=== PATIENT | male | born 1940 | race Caucasian/White ===

== ENCOUNTER → 2016-05-29 | Outpatient (CLI) | payer OTHER, MEDICARE ==
--- NOTE | 2016-05-29 11:49 | DX ---
Right Great Toe, 3 Views History: Increasing pain and swelling after injury 2 weeks ago. Findings: Degenerative change is seen at the first metatarsophalangeal joint with joint narrowing, larose barticular sclerosis, and periarticular spurring. There appears to be a nondisplaced fracture through a medial osteophyte at the base of the first proximal phalanx. No other evidence for acute fracture. Mild hallux valgus and bunion deformity. Impression: Probable nondisplaced fracture through a medial osteophyte at the base of the first proxi mal phalanx. Moderate degenerative change first metatarsophalangeal joint. Hallux valgus and bunion d eformity.
== END ==
LOC: GIMAGING 11:10
PROVIDERS: ATTEND Nurse Practitioner
DX: M19.071 Primary osteoarthritis, right ankle and foot (principal); M20.11 Hallux valgus (acquired), right foot; M21.611 Bunion of right foot; W20.8XXA Other cause of strike by thrown, projected or falling object, initial encounter; S99.921A Unspecified injury of right foot, initial encounter; M79.89 Other specified soft tissue disorders
CPT/HCPCS: 73660-PO

== ENCOUNTER → 2016-09-12 | Outpatient (CLI) | payer OTHER, MEDICARE | LOC: BHCLAF 14:15 | PROVIDERS: ATTEND Internal Medicine Cardiovascular Disease | DX: I25.10 Atherosclerotic heart disease of native coronary artery without angina pectoris (principal); I10 Essential (primary) hypertension; E78.5 Hyperlipidemia, unspecified | CPT/HCPCS: 93005-PO ==

== ENCOUNTER → 2016-09-23 | Outpatient (CLI) | payer OTHER, MEDICARE | LOC: BHFA 10:45 | PROVIDERS: ATTEND Internal Medicine Cardiovascular Disease | DX: R00.2 Palpitations (principal); R06.00 Dyspnea, unspecified; I10 Essential (primary) hypertension ==

== ENCOUNTER → 2016-10-30 | Outpatient (CLI) | payer OTHER, MEDICARE | LOC: BHFA 13:00 | PROVIDERS: ATTEND Internal Medicine Cardiovascular Disease | DX: R07.9 Chest pain, unspecified (principal) | CPT/HCPCS: 78452; 93017; A9500 ==

== ENCOUNTER → 2016-11-07 | Outpatient (CLI) | payer OTHER, MEDICARE | LOC: BHFA 13:00 | PROVIDERS: ATTEND Internal Medicine Cardiovascular Disease | DX: I47.1 Supraventricular tachycardia (principal) ==

== ENCOUNTER 2016-12-29 10:43 | Observation (INO) | payer OTHER, MEDICARE ==
[2016-12-29] MEDS ORDERED: ASPIRIN 81 MG CHEWABLE TAB PO ONE (11:07)
--- NOTE | 2016-12-29 11:07 | EDPHY ---
H & P Stated Complaint: Midsternal CP since 9am;feels jittery;pain like previous IA - Personal History Current Tetanus Diphtheria and Acellular Pertussis (TDAP): Yes - Medical/Surgical History Hx Cardiac Disease: Yes Other PMH: IA, High Cholest.Gutlate psoriasis - Social History Smoking Status: Never smoked Time Seen by Provider: 12/29/16 10:56 HPI/ROS: CHIEF COMPLAINT: midsternal chest pain since 9:00 a.m. today HISTORY OF PRESENT ILLNESS: 76-year-old male prior history of IA 2006 this, SVT , arrives via private vehicle complaining of midsternal chest pain started 9:00 a.m. today while drinking coffee. Not involving exertional activities. He has associated sensation of sore throat. At time my interview and evaluation is asymptomatic no chest pain no sore throat. No radiation of pain. No dyspnea. No syncope no near syncope. He last worked out yesterday completing 45 minutes of cardiac activity is did not need to cease activity secondary chest pain with dyspnea. [facility] [place] REVIEW OF SYSTEMS: A ten point review of systems was performed and is negative with the exception of the items mentioned in the HPI PAST MEDICAL & SURGICAL HISTORY: IA. SVT. SOCIAL HISTORY: Nonsmoker PHYSICAL EXAM (Prior to examination, patient consented to physical exam, hands were washed and my usual and customary physical exam procedures followed) 1) GENERAL: Well-developed, well-nourished, alert and oriented. Appears to be in no acute distress. 2) HEAD: Normocephalic, atraumatic 3) HEENT: Pupils equal, round, reactive to light bilaterally. Sclera anicteric. Nasopharynx, oropharynx, clear, no lesions. 4) NECK: Full range of motion, no bruit 5) LUNGS: Clear auscultation bilaterally, no wheezes, no rhonchi, no retractions. 6) HEART: Regular rate and rhythm, no murmur, no heave, no gallop. 7) ABDOMEN: No guarding, no rebound, no focal tenderness, negative McBurney's, negative Arreguin's, negative Rovsing's, negative peritoneal sign, 8) MUSCULOSKELETAL: Moving all extremities, no focal areas of tenderness, no obvious trauma. No peripheral edema or discoloration. Negative Homans no palpable cord 9) BACK: No CVA tenderness, no midline vertebral tenderness, no fluctuance, no step-off, no obvious trauma, no visual or palpable abnormality. 10) SKIN: No rash, no petechiae. 11) Psychiatric: Patient is oriented X 3, there is no agitation. DIFFERENTIAL DIAGNOSIS: in no particular order, including but not limited to myocardial ischemia, pulmonary embolus, chest wall pain, pleural inflammation and pulmonary infectious causes. (Esther Bryant Karina) Constitutional: Initial Vital Signs Temperature (C) 36.7 C 12/29/16 10:46 Heart Rate 64 12/29/16 10:46 Respiratory Rate 18 12/29/16 10:46 Blood Pressure 147/69 H 12/29/16 10:46 O2 Sat (%) 96 12/29/16 10:46 O2 Delivery Mode Room Air Allergies/Adverse Reactions: No Known Allergies Allergy (Verified 12/29/16 10:45) Home Medications: Medication Instructions Recorded Atorvastatin Calcium [Lipitor 40 40 mg PO HS 12/29/12 mg (RX)] Aspirin [Aspirin 81mg (*)] 81 mg PO DAILY 12/29/16 Diltiazem HCl [Cartia XT 240mg] 240 mg PO DAILY 12/29/16 Escitalopram Oxalate [Lexapro] 10 mg PO DAILY 12/29/16 Herbals/Supplements -Info Only 1 ea PO DAILY 12/29/16 Losartan Potassium [Cozaar 50 mg 50 mg PO HS 12/29/16 (*)] Medical Decision Making - Diagnostics Imaging Results: Imaging Impressions Chest X-Ray 12/29/16 11:07 Impression: 1. No acute process. 2. Minimal air trapping similar to 2015. Chest/Thorax CTA 12/29/16 11:56 Impression: 1. No evidence of thrombopulmonary embolic disease. 2. Normal caliber mildly atherosclerotic aorta. No dissection. 3. Clear lungs. Scattered probably benign noncalcified pulmonary nodules in the right lower lobe. Recommend follow-up low-dose noncontrast chest CT in 12 months to assure benignity. Findings discussed with Emergency Department physician digital sales assistant, Leonides Bryant PA-C on December 29, 2016 at 1247 hours. ED Course/Re-evaluation: Case discussed with Dr Jefferson in the ER. Due to patient's history of IA, timing of symptoms, plan will be admission to hospitalist with cardiology consultation. 12:45 p.m.: Phone consultation with hospitalist Elke admit to Dr. Hubbard. I consulted with Dr. Berry So cardiology who will consult Cardiology (Etsher Bryant) Other Provider: [id number]: Assessed patient in conjunction with MODESTO Bryant. His symptoms today are the same as his prior IA. I've reviewed his EKG and recommended admission and cardiology consult for this. (Chetan Jefferson) - Data Points Laboratory Results: Laboratory Results 12/29/16 10:54 12/29/16 10:54 12/29/16 12/29/16 12/29/16 10:54 10:54 10:54 WBC RBC Hgb Hct MCV MCH MCHC RDW Plt Count MPV Neut % (Auto) Lymph % (Auto) Mcnairy % (Auto) Eos % (Auto) Baso % (Auto) Nucleat RBC Rel Count Absolute Neuts (auto) Absolute Lymphs (auto) Absolute Monos (auto) Absolute Eos (auto) Absolute Basos (auto) Absolute Nucleated RBC Immature Gran % Immature Gran # PT 14.3 SEC SEC (12.0-15.0) INR 1.12 (0.83-1.16) APTT 28.2 SEC SEC (23.0-38.0) D-Dimer 0.76 ug/mLFEU H ug/mLFEU (0.00-0.50) Sodium 138 mEq/L mEq/L (134-144) Potassium 4.7 mEq/L mEq/L (3.5-5.2) Chloride 100 mEq/L mEq/L (97-110) Carbon Dioxide 23 mEq/l mEq/l (22-31) Anion Gap 15 mEq/L mEq/L (8-16) BUN 17 mg/dL mg/dL (7-23) Creatinine 1.3 mg/dL mg/dL (0.7-1.3) Estimated GFR 54 Glucose 73 mg/dL mg/dL (70-100) Calcium 9.9 mg/dL mg/dL (8.5-10.4) Magnesium 2.1 mg/dL mg/dL (1.6-2.3) Troponin I < 0.012 ng/mL ng/mL (0.000-0.034) 08/28/17 10:54 WBC 5.59 10^3/uL 10^3/uL (3.80-9.50) RBC 4.89 10^6/uL 10^6/uL (4.40-6.38) Hgb 15.8 g/dL g/dL (13.7-17.5) Hct 45.6 % % (40.0-51.0) MCV 93.3 fL fL (81.5-99.8) MCH 32.3 pg pg (27.9-34.1) MCHC 34.6 g/dL g/dL (32.4-36.7) RDW 13.1 % % (11.5-15.2) Plt Count 159 10^3/uL 10^3/uL (150-400) MPV 9.7 fL fL (8.7-11.7) Neut % (Auto) 69.8 % % (39.3-74.2) Lymph % (Auto) 18.6 % % (15.0-45.0) Mcnairy % (Auto) 8.4 % % (4.5-13.0) Eos % (Auto) 1.4 % % (0.6-7.6) Baso % (Auto) 1.6 % % (0.3-1.7) Nucleat RBC Rel Count 0.0 % % (0.0-0.2) Absolute Neuts (auto) 3.90 10^3/uL 10^3/uL (1.70-6.50) Absolute Lymphs (auto) 1.04 10^3/uL 10^3/uL (1.00-3.00) Absolute Monos (auto) 0.47 10^3/uL 10^3/uL (0.30-0.80) Absolute Eos (auto) 0.08 10^3/uL 10^3/uL (0.03-0.40) Absolute Basos (auto) 0.09 10^3/uL 10^3/uL (0.02-0.10) Absolute Nucleated RBC 0.00 10^3/uL 10^3/uL (0-0.01) Immature Gran % 0.2 % % (0.0-1.1) Immature Gran # 0.01 10^3/uL 10^3/uL (0.00-0.10) PT INR APTT D-Dimer Sodium Potassium Chloride Carbon Dioxide Anion Gap BUN Creatinine Estimated GFR Glucose Calcium Magnesium Troponin I Medications Given: Discontinued Medications Aspirin (Aspirin) 324 mg PO EDNOW ONE Stop: 12/29/16 11:08 Last Admin: 12/29/16 11:15 Dose: 243 mg Departure - Departure Disposition: [facility] Inpatient Acute Clinical Impression: Chest pain Qualifiers: Chest pain type: other chest pain Qualified Code(s): R07.89 - Other chest pain Atrial fibrillation Qualifiers: Atrial fibrillation type: paroxysmal Qualified Code(s): I48.0 - Paroxysmal atrial fibrillation Condition: Fair
--- NOTE | 2016-12-29 11:08 | CPEKG ---
Heart Rate: 78 RR Interval: 769 P-R Interval: 180 QRSD Interval: 98 QT Interval: 396 QTC Interval: 452 P Opp: 70 QRS Opp: 80 T Wave Opp: 53 EKG Severity - ABNORMAL ECG - EKG Impression: SINUS RHYTHM EKG Impression: SUPRAVENTRICULAR BIGEMINY Electronically Signed By: Chetan Jefferson 29-Dec-2016 13:20:33
[2016-12-29 11:20] LABS: % IMMATURE GRANULYOCYTES 0.2 % (0.0-1.1); ABSOLUTE IMMATURE GRANULOCYTES 0.01 10^3/uL (0.00-0.10); ADD DIFF? NO; ADD MORPH? NO; ADD SCAN? NO; ATYPICAL LYMPHOCYTE FLAG 10 (0-99); FRAGMENT RBC FLAG 0 (0-99); HEMATOCRIT 45.6 % (40.0-51.0); HEMOGLOBIN 15.8 g/dL (13.7-17.5); LEFT SHIFT FLG 0 (0-99); LIPEMIA HEMOLYSIS FLAG 90 (0-99); MEAN CELL HEMOGLOBIN 32.3 pg (27.9-34.1); MEAN CELL HEMOGLOBIN CONCENTR. 34.6 g/dL (32.4-36.7); MEAN CELL VOLUME 93.3 fL (81.5-99.8); MEAN PLATELET VOLUME 9.7 fL (8.7-11.7); PLATELET CLUMPS FLAG 0 (0-99); PLATELET COUNT 159 10^3/uL (150-400); RED BLOOD CELL COUNT 4.89 10^6/uL (4.40-6.38); RED CELL DISTRIBUTION WIDTH 13.1 % (11.5-15.2)
[2016-12-29 11:30] LABS: INR 1.12 (0.83-1.16); PROTIME(PATIENT) 14.3 SEC (12.0-15.0)
[2016-12-29 11:31] LABS: APTT 28.2 SEC (23.0-38.0)
[2016-12-29 11:42] LABS: ANION GAP 15 mEq/L (8-16); CALCIUM 9.9 mg/dL (8.5-10.4); CARBON DIOXIDE 23 mEq/l (22-31); CHLORIDE 100 mEq/L (97-110); CREATININE 1.3 mg/dL (0.7-1.3); GLOMERULAR FILTRATION RATE 54; GLUCOSE 73 mg/dL (70-100); POTASSIUM 4.7 mEq/L (3.5-5.2); SODIUM 138 mEq/L (134-144)
[2016-12-29 11:54] LABS: TROPONIN I < 0.012 ng/mL (0.000-0.034)
[2016-12-29] MEDS ORDERED: IOPAMIDOL (ISOVUE 370) 100 ML BTL IV ONE (12:12)
[2016-12-29] MEDS ORDERED: ACETAMINOPHEN 325 MG TAB PO PRN (13:30)
[2016-12-29] MEDS ORDERED: ONDANSETRON DISINTEGRATING 4 MG TAB PO PRN (13:30)
[2016-12-29] MEDS ORDERED: ONDANSETRON 4 MG/2 ML VIAL IVP PRN (13:30)
--- NOTE | 2016-12-29 15:29 | GHP ---
[f rep st] HISTORY AND PHYSICAL DATE OF ADMISSION: 12/29/2016 CHIEF COMPLAINT: Chest tightness. HISTORY OF PRESENT ILLNESS: A 76-year-old male with history of coronary artery disease, SVT, followed by [facility], presenting with chest and neck tightness this morning. Approximately 9 o'clock while sitting, had chest pressure across the chest, up to his neck, with an associated tired feeling. There was no nausea, vomiting, or numbness. He said he was watching his rhythm on his pulse oximetry machine at home and said it was not regular. He was concerned of atrial fibrillation. This episode lasted for an hour and a half. Currently asymptomatic. Exercises 2-3 times a week, an hour at a time on the exercise machines, without chest pressure or shortness of breath. No lower extremity edema. No PND. No pillow orthopnea. Had a cath 08/2012 showing mild coronary artery disease without flow limitation. LAD had mild diffuse disease in the proximal and mid segments, approximately 25% to 30%. Echocardiogram 09/27 showed normal LVF and no valvular abnormalities. Underwent MPI stress test October 2016 showing stress EKG equivocal for ischemia with a Day treadmill score of 4, but normal myocardial perfusion imaging. REVIEW OF SYSTEMS: I completed a 10-point review of systems, negative except as noted in HPI. PAST MEDICAL HISTORY: 1. Coronary artery disease. 2. Hyperlipidemia. 3. Hypertension. 4. SVT. 5. Anxiety. 6. Coronary artery disease. 7. Depression. SURGICAL HISTORY: Coronary cath, dental work. FAMILY HISTORY: Mother with congestive heart failure. ALLERGIES: None. MEDICATIONS: See medication reconciliation. SOCIAL HISTORY: Lives in [place] with his , over 50 years. Had smoked half a pack of cigarettes for approximately 6 years. No illicits. Occasional alcohol. PHYSICAL EXAMINATION: VITAL SIGNS: Temperature 36.6, blood pressure 147/69, heart rate 70s, respirations 20, 92% on room air. GENERAL: Well-appearing male , sitting up in bed, in no acute distress. HEENT: PERRLA. EOMI. Oropharynx clear. CV: Regular rate. Occasional extra beat. No murmurs, gallops, rubs. No lower extremity edema. LUNGS: Clear to auscultation bilaterally. No crackles or wheezing. GI: Soft, nontender, nondistended. Positive bowel sounds. : No suprapubic tenderness. MUSCULOSKELETAL: 5/5 upper and lower extremity strength. NEURO: 2 through 12 intact. PSYCH: Alert and oriented x3. LABORATORY DATA: WBCs 5, hemoglobin 15, hematocrit 45, platelets 159. D-dimer is 0.76. INR 1.1. PT 14. Sodium 138, potassium 4.7, chloride 100, carbon dioxide 23, creatinine 1.3 at baseline. Troponin less than 0.012. EKG was personally reviewed by me, normal sinus rhythm, bigeminy. CTA chest, no pulmonary embolism. Clear lungs. Noncalcified pulmonary nodules in the right lower lobe. ASSESSMENT AND PLAN: 1. Chest pressure: Differential includes gastroesophageal reflux disease, musculoskeletal, acute coronary syndrome, versus pulmonary embolism. CTA was negative for a clot. Symptoms may be secondary to premature ventricular contractions. Initial EKG and troponin are nonischemic. We will repeat both these and monitor on telemetry. He had a recent stress test with an equivocal EKG portion and normal imaging. 2. History of supraventricular tachycardia: Followed by Dr. Panda. We will continue diltiazem. 3. Coronary artery disease: Continue statin, aspirin, and RITCHIE inhibitor. 4. Hyperlipidemia: Statin. 5. Diet: Cardiac. 6. Deep venous thrombosis prophylaxis: Lovenox. 7. Disposition: Patient warrants observation admission given acute chest pressure concerning for possible acute coronary syndrome. Will monitor on telemetry and repeat troponin and EKG. /[id number]/MODL MTDD
--- NOTE | 2016-12-29 16:42 | CPEKG ---
Heart Rate: 47 RR Interval: 1277 P-R Interval: 188 QRSD Interval: 102 QT Interval: 428 QTC Interval: 379 P [place]: 69 QRS [place]: 78 T Wave [place]: 20 EKG Severity - OTHERWISE NORMAL ECG - EKG Impression: SINUS BRADYCARDIA EKG Impression: ATRIAL PREMATURE COMPLEX Electronically Signed By: Bari Nassar 30-Dec-2016 08:55:03
--- NOTE | 2016-12-29 18:02 | PDCARPN ---
Cardiology Progress Note Assessment/Plan: Assessment: SVT hx-- on Cardizem CD 240 mg QD, Has noted irregularity to heart rate. At times slower. He was evaluated by Dr Panda 11/07/16 and was started on Cardizem. He has not felt as energetic since starting Cardizem. Will monitor for arrhythmias on Telemetry. Atrial Fib history. No AF seen on monitor. No syncope or near syncope. Chest discomfort-- Hx of [place] Angiogram 2005. Normal MPI 10/30/2016. HTN: managed on Losartan and Cardizem. HLP on Atorvastatin 20 mg daily. LDL goal 70 or less. Plan: Monitor on telemetry closely. ECHO done 09/23/16 NWMA, EF 66%. Mild to mod MR, Mod TR 12/29/16 17:53 Objective: Vital Signs (8 Hrs) Temp Pulse Resp BP Pulse Ox 12/29/16 16:32 36.8 C 60 15 120/68 90 L 12/29/16 14:12 37.2 C 72 20 147/69 H 92 12/29/16 13:51 36.6 C 93 18 131/50 H 97 Result Diagrams: 12/29/16 10:54 12/29/16 10:54 Cardiac Labs: Cardiac Lab Results (72 Hrs) 12/29/16 16:18 Troponin I < 0.012 - Physical Exam Constitutional: WDWN, no apparent distress Cardiovascular: irregularly irregular Peripheral Pulses: 2+: carotid (R), carotid (L), dorsalis-pedis (R), dorsalis- pedis (L) Respiratory: clear to auscultate bilat, no crackles, no wheezes Skin: warm, no edema Neurologic: AAOx3 Psychiatric: cooperative, interactive ICD10 Worksheet Patient Problems: Problems Problem Status Onset Atrial fibrillation Acute Chest pain Acute
[2016-12-29] MEDS ORDERED: ATORVASTATIN CALCIUM 40 MG TAB PO SCH (21:00)
[2016-12-29] MEDS ORDERED: LOSARTAN POTASSIUM 50 MG TAB PO SCH (21:00)
[2016-12-30 05:39] LABS: ANION GAP 12 mEq/L (8-16); CALCIUM 9.3 mg/dL (8.5-10.4); CARBON DIOXIDE 25 mEq/l (22-31); CHLORIDE 102 mEq/L (97-110); CREATININE 1.3 mg/dL (0.7-1.3); GLOMERULAR FILTRATION RATE 54; GLUCOSE 103 mg/dL (70-100); POTASSIUM 4.3 mEq/L (3.5-5.2); SODIUM 139 mEq/L (134-144)
--- NOTE | 2016-12-30 08:46 | HOSPPROG ---
Hospitalist Progress Note Assessment/Plan: #Symptomatic PVCs: normal TTE May. #Chest pressure: suspect due to PVCs. Negative trops, EKGs and CTA. Recent MPI showed normal perfusion #CAD: no flow-limiting on last cath. Cont statin, ASA. Dilt #HTN: ACEI, dilt #h/o SVT: decreased dose Dilt to 180mg with bradycardia here DC today. FU with Dr. Panda Subjective: "hot flash" and palps at 3am Objective: Vital Signs Temp Pulse Resp BP Pulse Ox 36.8 C 53 L 16 120/50 L 95 12/30/16 07:45 12/30/16 07:45 12/30/16 07:45 12/30/16 07:45 12/30/16 07:45 Laboratory Results 12/30/16 04:39 12/29/16 12/30/16 12/31/16 05:59 05:59 05:59 Intake Total 650 Output Total 915 Balance -265 PT 14.3 SEC (12.0-15.0) 12/29/16 10:54 INR 1.12 (0.83-1.16) 12/29/16 10:54 - Physical Exam Constitutional: no apparent distress Eyes: PERRL Ears, Nose, Mouth, Throat: moist mucous membranes Cardiovascular: regular rate and rhythym (bradycardic with extra beats), No systolic murmur, No edema Respiratory: no respiratory distress, no rales or rhonchi Gastrointestinal: normoactive bowel sounds, soft, non-tender abdomen Genitourinary: no bladder fullness Skin: warm Musculoskeletal: full muscle strength Neurologic: AAOx3, CN II-XII Intact Psychiatric: interacting appropriately ICD10 Worksheet Patient Problems: Problems Problem Status Onset Atrial fibrillation Acute Chest pain Acute
[2016-12-30] MEDS ORDERED: ASPIRIN 81 MG CHEWABLE TAB PO SCH (09:00)
[2016-12-30] MEDS ORDERED: DILTIAZEM XR 240 MG CAP PO SCH (09:00)
[2016-12-30] MEDS ORDERED: ENOXAPARIN 40 MG/0.4 ML SYR SC SCH (09:00)
[2016-12-30] MEDS ORDERED: Herbals/Supplements -Info Only PO SCH (09:00)
[2016-12-30] MEDS ORDERED: ESCITALOPRAM OXALATE 10 MG TAB PO SCH (09:00)
[2016-12-30 11:09] VITALS: BP 103/55; PULSE 51; RESP 14; TEMP 99.2; O2SAT 96
--- NOTE | 2016-12-30 11:41 | PDCARPN ---
Cardiology Progress Note Assessment/Plan: Assessment: SVT hx-- on Cardizem CD 240 mg QD, Has noted irregularity to heart rate. At times slower. He was evaluated by Dr Panda 11/07/16 and was started on Cardizem. He has not felt as energetic since starting Cardizem. Will monitor for arrhythmias on Telemetry. Atrial Fib history. No AF seen on monitor. No syncope or near syncope. Chest discomfort-- Hx of [place] Angiogram 2005. Normal MPI 10/30/2016. HTN: managed on Losartan and Cardizem. HLP on Atorvastatin 20 mg daily. LDL goal 70 or less. Plan: Monitor on telemetry closely. ECHO done 09/23/16 NWMA, EF 66%. Mild to mod MR, Mod TR 12/29/16 17:53 12/30/16 11:35 Doing well. Ready to go home. No further chest discomfort since admit. He had a recent ECHO, and MPI which showed significant findings. CT chest showed no PE at time of admit. Will try him on lower dose of Cardizem ( from 240 to 180 mg) due to HR consistently in 40 - 50's, and occasional lightheadedness. Should he note increased palpitations consistant with his SVT he will go back up to Cardizem CD 240 mg QD. He has appointment with Dr Panda in 10 days. Objective: Vital Signs (8 Hrs) Temp Pulse Resp BP Pulse Ox 12/30/16 11:08 37.3 C 51 L 14 103/55 L 96 12/30/16 07:45 36.8 C 53 L 16 120/50 L 95 12/30/16 04:00 36.4 C 70 20 110/51 L 93 Intake/Output (24 Hrs) 12/29/16 12/30/16 12/31/16 05:59 05:59 05:59 Intake Total 650 Output Total 915 Balance -265 Intake: Oral (ml) 650 Output: Urine (ml) 915 Urinal 915 Other: Weight 78.925 kg Result Diagrams: 12/29/16 10:54 12/30/16 04:39 Cardiac Labs: Cardiac Lab Results (72 Hrs) 12/29/16 16:18 Troponin I < 0.012 - Physical Exam Constitutional: WDWN, no apparent distress Cardiovascular: no murmurs, no rubs, no gallops, other (Regular rate and rhythm with ectopy (PAC's)) Respiratory: clear to auscultate bilat, no crackles, no wheezes Skin: warm, no edema Neurologic: AAOx3 Psychiatric: cooperative, interactive ICD10 Worksheet Patient Problems: Problems Problem Status Onset Atrial fibrillation Acute Chest pain Acute
--- NOTE | 2016-12-30 13:32 | GDS ---
[f rep st] DISCHARGE SUMMARY DISCHARGE DIAGNOSES: 1. History of supraventricular tachycardia. 2. Palpitations. 3. Chest pressure. 4. Hypertension. 5. Hyperlipidemia, coronary artery disease. HISTORY OF PRESENT ILLNESS: A pleasant 76-year-old male with history of coronary artery disease, SVT, followed by Dr. Panda and Dr. Johnson at [facility], presented with chest and neck tightness the morning of admission. At 9 a.m. that morning, he was sitting and developed pressure across the chest up to his neck and an associated tired feeling. Denied any associated nausea, vomiting, numbness, or diaphoresis. He said he was watching his heart rhythm on his pulse oximetry machine and said it was not regular and he was concerned for atrial fibrillation, thus came to the hospital. Episode lasted for an hour and a half. He exercises 2-3 times a week, an hour at a time on exercise machines without chest pressure or shortness of breath. Denies lower extremity edema, PND, or pillow orthopnea. He had a cath 08/14 showing mild coronary artery disease without flow limitation. HOSPITAL COURSE BY PROBLEM: 1. Chest pressure: Suspect that secondary to PVCs as noted on telemetry. He had a CTA that was negative for PE. Had recent echocardiogram in September that was normal. He also had an MPI stress October 18 showing EKG equivocal for ischemia, but normal perfusion imaging. The patient will be discharged reduced dose of Diltiazem 180mg given bradycardia here. He is to follow up with Dr. Panda in the next 10 days. 2. SVT: Again, reduced Cardizem to 180. If he does feel increased palpitation , he may increase that back to 240. 3. Coronary artery disease. Continue statin, aspirin, RITCHIE inhibitor. 4. Hyperlipidemia. Statin. DISPOSITION: Patient is stable for discharge. NEW MEDICATIONS: Diltiazem 180 mg daily, reduced from 240 mg. FOLLOWUP: Dr. Panda. /[id number]/MODL MTDD
== END 2016-12-30 13:00 | disposition home or self-care (01) ==
LOC: F2W 14:00
PROVIDERS: ADMIT Internal Medicine; ATTEND Internal Medicine
CPT/HCPCS: 71020; 71275; 93005; G0378; J1650; Q9967

== ENCOUNTER → 2017-10-02 | Outpatient (CLI) | payer OTHER, MEDICARE | LOC: BHFA 15:30 | PROVIDERS: ATTEND Internal Medicine Cardiovascular Disease | DX: R29.898 Other symptoms and signs involving the musculoskeletal system (principal) ==

== ENCOUNTER → 2017-10-14 | Outpatient (CLI) | payer OTHER, MEDICARE | LOC: FIMAGING 12:51 | PROVIDERS: ATTEND Internal Medicine Hematology & Oncology | DX: R22.31 Localized swelling, mass and lump, right upper limb (principal) ==

== ENCOUNTER → 2018-10-03 | Outpatient (CLI) | payer OTHER, MEDICARE | LOC: GIMAGING 12:47 ==